=== PATIENT | female | born 1965 | race Caucasian/White ===

== ENCOUNTER 2017-01-06 17:35 | Emergency (ER) | payer MEDICAID ==
[2017-01-06 17:41] VITALS: TEMP 98; BMI 34.5
[2017-01-06] MEDS ORDERED: TraMADol/Apap 37.5/325 mg Tab PO STA (17:50)
--- NOTE | 2017-01-06 18:02 | ED PDOC ---
Arrival/HPI - General Chief Complaint: Rib Injury Time Seen by Provider: 01/06/17 17:36 Historian: Patient - History of Present Illness Narrative History of Present Illness (Text): 01/06/17 18:07 A 51 year old female, whose past medical history includes diabetes, hypertension , hypercholesterolemia, hypothyroidism and renal disease, presents to the emergency department complaining of right sided rib pain. Patient reports that 3 days ago she was at a supermarket and when she bent over to pick something up , she hit her anterior right rib on a crate. Since then, patient has been having pain with movement, deep breaths or cough. Patient hasn't taken any pain medication but notes she applied topical cream. Patient denies any shortness of breath, nausea, vomiting, abdominal pain or any other complaints at this time. PMD: Dr. Berman Time/Duration: Other (3 days) Symptom Onset: Sudden Symptom Course: Unchanged Activities at Onset: Light Associated Symptoms (Text): none Past Medical History - Provider Review Nursing Documentation Reviewed: Yes - Infectious Disease Hx of Infectious Diseases: None - Tetanus Immunization Tetanus Immunization: Unknown - Reproductive Menopause: Yes - Cardiac Hx Cardiac Disorders: Yes Hx Hypertension: Yes - Pulmonary Hx Respiratory Disorders: No - Neurological Hx Neurological Disorder: Yes Hx Dizziness: Yes - HEENT Hx HEENT Disorder: No - Renal Hx Renal Disorder: Yes ("KIDNEY FUNCTION TEST @40%") Other/Comment: " KIDNEY FUNCTION TEST AT 38% " - Endocrine/Metabolic Hx Endocrine Disorders: Yes Hx Diabetes Mellitus Type 2: Yes Hx Hypothyroidism: Yes - Hematological/Oncological Hx Blood Disorders: Yes Hx Anemia: Yes - Integumentary Hx Dermatological Disorder: No Hx Basal Cell Carcinoma: No - Musculoskeletal/Rheumatological Hx Musculoskeletal Disorders: Yes Hx Falls: Yes (01/29/15) Hx Fractures: Yes (LEFT KNEE AND RIGHT ANKLE-CASTED ONLY) - Gastrointestinal Hx Gastrointestinal Disorders: No Hx Bowel Surgery: No - Genitourinary/Gynecological Hx Genitourinary Disorders: No Hx Bladder Cancer: No - Psychiatric Hx Psychophysiologic Disorder: No Hx Substance Use: No - Past Surgical History Past Surgical History: No Previous - Surgical History Hx Cholecystectomy: Yes - Anesthesia Hx Anesthesia: Yes Hx Anesthesia Reactions: No Hx Malignant Hyperthermia: No - Suicidal Assessment Feels Threatened In Home Enviroment: No Family/Social History - Physician Review Nursing Documentation Reviewed: Yes Family/Social History: No Known Family HX Smoking Status: Never Smoked Hx Alcohol Use: No Hx Substance Use: No Allergies/Home Meds Allergies/Adverse Reactions: Allergies Tetanus Vaccines and Toxoid [Tetanus Vaccines & Toxoid] Allergy (Severe, Verified 01/06/17 17:41) RASH novalgin Allergy (Intermediate, Uncoded 01/06/17 17:41) RASH Home Medications: Home Meds Medication Instructions Recorded Confirmed Ferrous Sulfate [Feosol] 325 mg PO DAILY 11/08/15 01/06/17 Levothyroxine [Synthroid] 88 mcg PO DAILY 11/08/15 01/06/17 Aspirin [Aspirin Chewable] 1 tab PO DAILY 11/10/15 01/06/17 Atorvastatin [Lipitor] 1 tab PO DAILY 11/10/15 01/06/17 Docusate Sodium [Col-Rite] 1 tab PO DAILY 11/10/15 01/06/17 Gabapentin [Neurontin] 300 mg PO DAILY 11/10/15 01/06/17 Metoprolol Tartrate [Lopressor] 1 tab PO BID 11/10/15 01/06/17 Omeprazole 1 tab PO DAILY 11/10/15 01/06/17 Acetaminophen [Mapap] 500 mg PO DAILY 02/24/16 01/06/17 Cholecalciferol (Vitamin D3) 1 tab PO DAILY 02/24/16 01/06/17 [Vitamin D3] Losartan [Cozaar] 25 mg PO DAILY 02/24/16 01/06/17 Meclizine [Antivert] 25 mg PO Q8 PRN 02/24/16 01/06/17 Lmiiv-3-Dgaz Ethyl Esters [OMEGA 3] 1,000 mg PO BID 02/24/16 01/06/17 Sitagliptin Phos/Metformin HCl 1 tab PO BID 02/24/16 01/06/17 [Janumet Xr 50-500 mg Tablet] Insulin Glargine, Recombina 30 units SC DAILY 01/06/17 01/06/17 [Lantus] Review of Systems - Physician Review All systems were reviewed & negative as marked: Yes - Review of Systems Respiratory: absent: SOB, Cough Cardiovascular: Other (Rib pain) Gastrointestinal: absent: Abdominal Pain, Nausea, Vomiting Musculoskeletal: Other (R sided rib pain) Physical Exam Vital Signs Reviewed: Yes Vital Signs Temp Pulse Resp BP Pulse Ox 01/06/17 17:37 98 F 81 18 129/75 100 Temperature: Afebrile Blood Pressure: Normal Pulse: Regular Respiratory Rate: Normal Appearance: Positive for: Non-Toxic Pain Distress: Moderate (with movement) Mental Status: Positive for: Alert and Oriented X 3 - Systems Exam Head: Present: Atraumatic, Normocephalic Pupils: Present: PERRL Conjunctiva: Present: Normal Mouth: Present: Moist Mucous Membranes Pharnyx: Present: Normal. No: ERYTHEMA, EXUDATE Neck: Present: Normal Range of Motion Respiratory/Chest: Present: Clear to Auscultation, Good Air Exchange, Tender to Palpation (lower anterior R rib). No: Respiratory Distress, Accessory Muscle Use Cardiovascular: Present: Regular Rate and Rhythm, Normal S1, S2. No: Murmurs Abdomen: Present: Normal Bowel Sounds. No: Tenderness, Distention, Peritoneal Signs Back: Present: Normal Inspection Upper Extremity: Present: Normal Inspection. No: Cyanosis, Edema Lower Extremity: Present: Normal Inspection. No: Edema Neurological: Present: GCS=15, CN II-XII Intact, Speech Normal Skin: Present: Warm, Dry, Normal Color. No: Rashes Psychiatric: Present: Alert, Oriented x 3, Normal Insight, Normal Concentration Medical Decision Making ED Course and Treatment: 01/06/17 17:56 Impression: A 51 year old female with right sided rib pain. Differential Diagnosis included but are not limited to: musculoskeletal rib pain vs. less likely pulmonary contusion vs. traumatic pneumothorax Plan: -- Radiology of ribs right and pa chest -- Ultracet -- Reassess and disposition Prior Visits: Notes and results from previous visits were reviewed. Patient last reported to the emergency department on 02/24/16 for evaluation of right and left sided flank pain. Progress Notes: 01/06/17 18:48 XR showing no definite or displaced rib fracture. Given renal disease, will d/ c on tramadol 50mg Q12H PRN pain and f/u pmd. - RAD Interpretation Radiology Orders: 01/06/17 17:50 RIBS RIGHT & PA CHEST [RAD] Stat - Medication Orders Current Medication Orders: Discontinued Medications Tramadol/Acetaminophen (Ultracet 37.5/325 Mg) 2 tab PO STAT STA Stop: 01/06/17 17:51 Last Admin: 01/06/17 18:29 Dose: 2 tab - Scribe Statement The provider has reviewed the documentation as recorded by the Toney Reyes Provider Scribe Attestation: All medical record entries made by the Toney were at my direction and personally dictated by me. I have reviewed the chart and agree that the record accurately reflects my personal performance of the history, physical exam, medical decision making, and the department course for this patient. I have also personally directed, reviewed, and agree with the discharge instructions and disposition. Disposition/Present on Arrival - Present on Arrival Any Indicators Present on Arrival: No History of DVT/PE: No History of Uncontrolled Diabetes: No Urinary Catheter: No History of Decub. Ulcer: No History Surgical Site Infection Following: None - Disposition Have Diagnosis and Disposition been Completed?: Yes Diagnosis: Contusion of rib on right side Disposition: HOME/ ROUTINE Disposition Time: 18:45 Patient Plan: Discharge Condition: GOOD Discharge Instructions (ExitCare): Rib Contusion (ED) Additional Instructions: Take the pain medication as prescribed. Follow up with your primary care doctor. Return to the emergency department if any new concerning symptoms. Prescriptions: traMADol [Ultram] 1 tab PO Q12H PRN #10 tab PRN Reason: Pain, Severe (8-10)
[2017-01-06 18:56] VITALS: PULSE 75
[2017-01-06 19:06] VITALS: BP 125/76; RESP 19; O2SAT 99
--- NOTE | 2017-01-07 07:50 | RAD ---
PROCEDURE: Radiographs of the Chest and Right Ribs. HISTORY: anterior lower R rib injury COMPARISON: None available. TECHNIQUE: Frontal radiograph of the chest and multiple oblique radiographs of the right ribs were obtained. FINDINGS: RIGHT RIBS: No fracture or focal lesion visualized. LUNGS: Clear. PLEURA: No pneumothorax or pleural fluid. CARDIOVASCULAR: Normal sized heart. No pulmonary vascular congestion. OTHER FINDINGS: None. IMPRESSION: Unremarkable radiographs of the chest and right ribs. No right rib fracture.
== END 2017-01-06 19:07 | disposition home or self-care (01) ==
LOC: ED 17:35
DX: S20.211A Contusion of right front wall of thorax, initial encounter (principal); W22.8XXA Striking against or struck by other objects, initial encounter; Y93.89 Activity, other specified; Y92.512 Supermarket, store or market as the place of occurrence of the external cause

== ENCOUNTER 2018-11-10 15:31 | Outpatient (CLI) | payer MEDICAID | END 2018-11-10 15:32 | disposition home or self-care (01) | LOC: RAD 15:31 ==